=== PATIENT | male | born 1995 | race Caucasian/White ===

== ENCOUNTER 2018-08-07 07:31 | Outpatient (CLI) | payer MEDICAID, SELFPAY ==
[2018-08-07 09:23] LABS: Cholesterol 160 mg/dL (50-200); Glucose 92 mg/dL (70-100); HDL Cholesterol 31 mg/dL (40-60); LDL CHOLESTEROL 102 mg/dL (<100); Triglyceride 187 mg/dL (30-150)
== END 2018-08-07 07:51 ==
PROVIDERS: PCP General Practice; Visit Provider General Practice
DX: Z13.220 Encounter for screening for lipoid disorders (principal); Z13.1 Encounter for screening for diabetes mellitus; Z00.00 Encounter for general adult medical examination without abnormal findings
CPT/HCPCS: 36415; 80061; 82947; 83721

== ENCOUNTER 2019-01-27 20:41 | Emergency (ER) | payer MEDICAID, SELFPAY ==
[2019-01-27 20:56] VITALS: BP 135/90; PULSE 64; RESP 14; TEMP 36.8; O2SAT 99
--- NOTE | 2019-01-27 21:17 | W.ED.GENAD ---
Discharge Plan Disposition Patient Disposition: HOME Discharge Details Chief Complaint: Nausea/Vomit/Diar Clinical Impression: Nausea & vomiting Primary Care Provider: Ritesh Grullon ED Provider: Mehran Mari Home Meds and New Rx's Prescriptions: No Action albuterol sulfate [ProAir HFA] 8.5 GM HFA aerosol inhaler 2 puff Inhalation ONCE Qty: 1 RF: 1 loratadine [Allergy Relief (loratadine)] 10 MG tablet 1 tab PO DAILY PRNQty: 90 RF: 0 Discharge Instructions Instructions: Acute Nausea and Vomiting (ED) Additional Instructions: It is very important that you maintain adequate oral hydration. Drink frequent sips of water. Adhere to the BRATY diet which consists of bananas, rice, apples, toast, yogurt. Return to develop abdominal pain or if you are unable to keep liquids down. Referrals: Ritesh Grullon MD [Primary Care Provider] - 1 week Medical Decision Making This is a nontoxic-appearing 23-year-old male presenting to the emergency department with nausea, vomiting and mild diarrhea over the last 3 days. Symptoms appear to be improving. His vitals are stable here in the emergency department. His abdomen is soft nontender. No worrisome features on exam or his history. We discussed the utilization of the BRATY diet along with ongoing oral hydration. Return precautions provided including severe abdominal pain, fever, inability to keep fluids down. Plan is to discharge him with a short supply of ondansetron 4 mg ODT's. Return precautions provided HPI General Date/Time Provider Initiated Documentation: 01/27/19 21:02. HPI Narrative: Patient here with 4 days of nausea and vomiting with mild diarrhea. Patient states that his symptoms started around Saturday afternoon, peaked at around noon Saturday, and now feels nearly back to his normal state of health. He is here at the request of his boss. He denies any abdominal pain or fever. His diarrhea is mild. He has been able to tolerate p.o. liquids. No dizziness or lightheadedness. No chest pain or shortness of breath. No recent travel outside of the country. Related Data Home Medications Medication Instructions Recorded Confirmed albuterol sulfate [Proair Hfa] 2 puff INHALATION ONCE #1 inhaler 05/15/16 loratadine [Allergy] 1 tab PO DAILY PRN #90 tab-cap 05/15/16 Allergies Allergy/AdvReac Type Severity Reaction Status Date / Time cefixime [From Suprax] Allergy Unknown Unverified 05/15/16 10:35 Penicillins Allergy Unknown Skin Rash Unverified 05/15/16 10:35 General Stated Complaint: Nausea/Vomit/Diar GORDON: 4 Review of Systems Constitutional Denies chills, Denies fever(s), Denies headache(s), Denies lethargy, Denies malaise and Denies weakness ENT Denies headache(s) and Denies odynophagia Cardiovascular Denies chest pain and Denies dyspnea Respiratory Denies dyspnea Gastrointestinal Denies abdominal pain, Denies belching, Denies bloating, Denies hematochezia, Denies coffee ground emesis, Denies constipation, Denies cramping, Denies dyspepsia, Reports diarrhea, Reports nausea, Denies odynophagia and Reports vomiting Genitourinary Denies difficulty urinating and Denies urinary frequency Musculoskeletal Denies myalgias, Denies muscle cramps and Denies muscle weakness Integumentary/Breasts Denies rash Neurologic Denies headache(s) and Denies weakness [facility] Medical History BMI, pediatric > 99% for age Mild intermittent asthma Family History Other Diabetes MGF, paternal side Personal history of malignant neoplasm paternal side-lung Heart disease PGF Myocardial infarction PGF Father Asthma outgrown Mother Healthy adult on routine physical examination Social History Smoking/Tobacco Use Status: Never Alcohol Intake: never Drug use: Never Substance use type: does not use Do you feel safe at home: Yes Do you feel safe in your relationship?: Yes Exam Const General: cooperative, healthy appearing and comfortable Orientation: alert, awake and oriented x3 HENMT Head: normal to inspection Mouth: oral mucosae normal and moist mucous membranes Neck Neck: normal visual inspection and full ROM Chest Chest: normal inspection of the chest Resp Effort & Inspection: normal respiratory effort Cardio Rate: regular rate Rhythm: regular rhythm Pulses: normal peripheral pulses GI Inspection: normal to inspection Palpation: soft Skin General skin exam: no rashes or lesions noted Course Vital Signs Temperature 36.8 C 01/27/19 20:56 Pulse 64 01/27/19 20:56 Respiratory Rate 14 01/27/19 20:56 Blood Pressure 135/90 01/27/19 20:56 Pulse Oximetry 99 01/27/19 20:56 Temperature 36.8 C 01/27/19 20:56 Temperature Source Tympanic 01/27/19 20:56 Pulse 64 01/27/19 20:56 Respiratory Rate 14 01/27/19 20:56 Respiratory Effort 01/27/19 21:11 Blood Pressure 135/90 01/27/19 20:56 Pulse Oximetry 99 01/27/19 20:56 Oxygen Delivery Method Room Air 01/27/19 20:56 Oxygen Flow Rate 0 01/27/19 20:56 Pain Level 0 01/27/19 20:56
[2019-01-27 21:44] VITALS: BP 135/90; PULSE 64; RESP 14; O2SAT 99
== END 2019-01-27 21:25 | disposition home or self-care (01) ==
PROVIDERS: Emergency Provider Physician Assistant; PCP General Practice
DX: R11.2 Nausea with vomiting, unspecified (principal); R19.7 Diarrhea, unspecified; Z02.79 Encounter for issue of other medical certificate
CPT/HCPCS: 99283

== ENCOUNTER 2019-04-21 18:44 | Emergency (ER) | payer MEDICAID, SELFPAY ==
[2019-04-21 18:59] VITALS: BP 144/74; PULSE 71; RESP 16; TEMP 36.6; O2SAT 96
--- NOTE | 2019-04-21 19:01 | ED.GENADUL_ITS ---
Discharge Plan Disposition Patient Disposition: HOME Condition: Good Discharge Details Chief Complaint: Nausea/Vomit/Diar Clinical Impression: Nausea vomiting and diarrhea Primary Care Provider: Ritesh Grullon ED Provider: Danika Sloan Home Meds and New Rx's Prescriptions: No Action No Known Home Meds RF: 0 Discharge Instructions Instructions: Acute Nausea and Vomiting (ED), Acute Diarrhea (ED) Additional Instructions: Drink plenty of fluids and get plenty of rest. Follow a bland diet over the next few days including bananas, rice, applesauce, toast, pretzels or crackers. Follow-up with primary care doctor within the next week for reevaluation. Return to the emergency department if you develop any worsening or new concerning symptoms. Stand Alone Forms: Work Release Discharge Data Discharge Physician: Danika Sloan Medical Decision Making 23-year-old male presents for request for work note for today due to vomiting and diarrhea today. Patient states he vomited twice today which was mainly food and had 2 episodes of watery brown diarrhea. He states all the symptoms are now resolved. He is requesting a work note to return tomorrow or if symptoms still present tomorrow. He has no complaint of fever, abdominal pain or urinary symptoms. He denies recent travel, recent antibiotics. He states his boss is sick with similar symptoms. Abdomen soft nontender. He appears nontoxic. Do not see an indication for labs or imaging and patient agreeable. He was given a work note. He was also given Zofran to go. He was advised to follow-up with the primary care doctor for reevaluation as needed and to return here with any concerns. HPI General Mode of arrival: ambulatory . Date/Time Provider Initiated Documentation: 04/21/19 18:59 . Limitations to Documentation: no limitations . Information obtained by: patient . History of Present Illness 23 year old M presents to the emergency department with the chief complaint of Vomiting and diarrhea, Patient started experiencing this day(s) (1) and it has been now resolved. No relieving factors improve symptom(s), No exacerbating factors reported . Patient notes denies confusion, chest pain, cough, diaphoresis, fever/chills, headaches, loss of appetite, malaise, rash, seizure, shortness of breath, syncope and weakness. Patient did receive the following treatments prior to arrival, none Related Data Home Medications Medication Instructions Recorded Confirmed Unknown [No Known Home Meds] 04/21/19 04/21/19 Allergies Allergy/AdvReac Type Severity Reaction Status Date / Time cefixime [From Suprax] Allergy Unknown Unverified 04/21/19 19:04 Penicillins Allergy Unknown Skin Rash Unverified 04/21/19 19:04 General Stated Complaint: Nausea/Vomit/Diar GORDON: 3 Review of Systems All systems reviewed & are unremarkable except as noted in HPI and below Constitutional Constitutional: Reports as per HPI, Denies chills and Denies fever(s) Eyes Eyes: Denies blurry vision ENT Ears, Nose, Mouth, and Throat: Denies dizziness, Denies sore throat and Denies throat swelling Cardiovascular Cardiovascular: Denies chest pain and Denies dyspnea Respiratory Respiratory: Denies cough and Denies dyspnea Gastrointestinal Gastrointestinal: Denies abdominal pain, Reports diarrhea and Reports vomiting Genitourinary Genitourinary: Denies hematuria and Denies dysuria Musculoskeletal Musculoskeletal: Denies back pain and Denies numbness Integumentary/Breasts Skin/Breast: Denies lesions and Denies rash Neurologic Neurologic: Denies dizziness, Denies focal weakness and Denies numbness Allergic/Immunologic Allergic/Immunologic: Denies throat swelling PFSH Medical History BMI, pediatric > 99% for age Mild intermittent asthma Family History Other Diabetes MGF, paternal side Personal history of malignant neoplasm paternal side-lung Heart disease PGF Myocardial infarction PGF Father Asthma outgrown Mother Healthy adult on routine physical examination Social History Smoking/Tobacco Use Status: Never Alcohol Intake: never Drug use: Never Substance use type: does not use Do you feel safe at home: Yes Do you feel safe in your relationship?: Yes Exam Const General: cooperative, healthy appearing and no acute distress HENMT Head: normal to inspection Face and sinus: normal facial exam Eyes General: appearance normal, both eyes and all related structures EOM: EOM intact bilaterally Neck Neck: normal visual inspection and No submandibular swelling Lymphatic: no lymphadenopathy noted Chest Chest: normal inspection of the chest and no tenderness Resp Effort & Inspection: normal respiratory effort and able to speak in complete sentences Auscultation: clear to auscultation bilaterally Cardio Rate: regular rate Rhythm: regular rhythm GI Inspection: normal to inspection Palpation: soft, not firm, not rigid and nontender Auscultation: normal bowel sounds Skin General skin exam: no rashes or lesions noted Neuro General: alert, awake and oriented x3 Cognition: normal cognition Speech: speech normal Motor: muscle tone normal throughout Sensory Exam: no sensory deficits noted Extrem General: normal to inspection, full ROM, normal capillary refill, no calf tenderness bilaterally and no edema Psych Appearance: grossly normal Mental Status: mental status grossly normal Speech and Movement: speech and movement normal Affect: normal affect Course Vital Signs Vital signs: Vital Signs Temperature 97.9 F 04/21/19 18:59 Pulse 71 04/21/19 18:59 Respiratory Rate 16 04/21/19 18:59 Blood Pressure 144/74 H 04/21/19 18:59 Pulse Oximetry 96 04/21/19 18:59 Temperature 97.9 F 04/21/19 18:59 Temperature Source Temporal Artery Scan 04/21/19 18:59 Pulse 71 04/21/19 18:59 Respiratory Rate 16 04/21/19 18:59 Blood Pressure 144/74 H 04/21/19 18:59 Blood Pressure Position Sitting 04/21/19 18:59 Pulse Oximetry 96 04/21/19 18:59 Oxygen Delivery Method Room Air 04/21/19 18:59 Oxygen Flow Rate 0 04/21/19 18:59 Pain Level 0 04/21/19 18:59
[2019-04-21] MEDS: Ondansetron O.D.T. 4 MG TABEF, 3 TABS/BTL PO (19:20)
== END 2019-04-21 19:20 | disposition home or self-care (01) ==
PROVIDERS: Emergency Provider Physician Assistant; PCP General Practice
DX: R11.2 Nausea with vomiting, unspecified (principal); R19.7 Diarrhea, unspecified; Z02.79 Encounter for issue of other medical certificate
CPT/HCPCS: 99283